=== PATIENT | female | born 1985 | race Caucasian/White ===

== ENCOUNTER 2018-10-01 20:45 | Inpatient (IN) | payer OTHER, MEDICAID ==
[2018-10-01 22:02] LABS: ADD MAN DIFF? NO
[2018-10-01] MEDS: ONDANSETRON 4 MG INJ IV (22:03)
[2018-10-01] MEDS: morphine 4 MG/ML VIAL IV (22:03)
[2018-10-01] MEDS: ACETAMINOPHEN 325 MG TAB PO (22:04)
[2018-10-01] MEDS: SODIUM CHLORIDE 0.9% 1L BAG IV* (22:04)
[2018-10-01 22:10] LABS: BASOPHILS % 0.2 % (0.0-2.0); HEMATOCRIT 40.8 % (37.0-47.0); HEMOGLOBIN 13.7 g/dl (12.0-16.0); LYMPHOCYTES # 0.7 10^3/ul (0.8-2.9); LYMPHOCYTES % 4.5 % (15.0-51.0); MEAN CORPUSCULAR HGB CONC 33.6 g/dl (32.0-37.0); MEAN CORPUSCULAR VOLUME 86.3 fl (82.0-101.0); MEAN PLATELET VOLUME 10.7 fl (7.4-10.4); MONOCYTE # 1.4 10^3/ul (0.3-0.9); MONOCYTES % 8.6 % (0.0-11.0); NEUTROPHIL # 14.1 10^3/ul (1.6-7.5); NEUTROPHILS % 86.3 % (39.0-77.0); PLATELET COUNT 217 10^3/UL (140-415); RED BLOOD COUNT 4.73 10^6/ul (4.20-5.40); RED CELL DISTRIBUTION WIDTH 13.4 % (11.5-14.5)
[2018-10-01 22:10] LABS: WHITE BLOOD COUNT 16.4 10^3/ul (4.8-10.8)
[2018-10-01 22:20] LABS: ADD UMIC YES; UR ASCORBIC ACID NEGATIVE (NEGATIVE); UR BILIRUBIN (Dip) NEGATIVE (NEGATIVE); UR BLOOD (Dip) 1+ mg/dL (NEGATIVE); UR CLARITY CLEAR (CLEAR); UR COLOR YELLOW (YELLOW); UR GLUCOSE (Dip) NEGATIVE (NEGATIVE); UR KETONES (Dip) NEGATIVE (NEGATIVE); UR LEUKOCYTE ESTERASE (Dip) NEGATIVE Leu/ul (NEGATIVE); UR NITRITE (Dip) NEGATIVE (NEGATIVE); UR RBC 0 /HPF (0-5); UR SPECIFIC GRAVITY (Dip) 1.013 (1.003-1.030); UR SQUAMOUS EPITHELIAL CELL FEW /HPF (FEW); UR TOTAL PROTEIN (Dip) NEGATIVE (NEGATIVE); UR UROBILINOGEN (Dip) NEGATIVE (NEGATIVE); UR WBC 1 /HPF (0-5)
[2018-10-01 22:27] LABS: ALANINE AMINOTRANSFERASE 37 IU/L (13-69); ALBUMIN 4.3 g/dl (3.3-4.9); ALBUMIN/GLOBULIN RATIO 1.48; ALKALINE PHOSPHATASE 87 IU/L (42-121); ANION GAP 13 (5-13); ASPARTATE AMINO TRANSFERASE 34 IU/L (15-46); BILIRUBIN,INDIRECT 0.5 mg/dl (0-1.1); BILIRUBIN,TOTAL 0.5 mg/dl (0.2-1.3); BLOOD UREA NITROGEN 8 mg/dl (7-20); CALCIUM 9.2 mg/dl (8.4-10.2); CARBON DIOXIDE 23 mmol/L (21-31); CHLORIDE 103 mmol/L (97-110); Estimated GFR > 60 mL/min (>60); GLUCOSE 119 mg/dl (70-220); POTASSIUM 3.4 mmol/L (3.5-5.1); SODIUM 139 mmol/L (135-144); TOTAL PROTEIN 7.2 g/dl (6.1-8.1)
[2018-10-01 22:30] LABS: PROTIME 13.3 Sec (11.9-14.9)
[2018-10-01 22:37] LABS: TROPONIN-I < 0.012 ng/ml (0.000-0.120)
[2018-10-02] MEDS: CEFEPIME 2GM/50 ML (PMX) 50 ML IVPB (00:10)
[2018-10-02] MEDS: VANCOMYCIN 1 GM (PMX) 250 ML IVPB (00:55)
[2018-10-02] MEDS ORDERED: NACL 0.9% 3 ML SYG IV (01:00)
[2018-10-02] MEDS ORDERED: DOCUSATE SODIUM 100 MG CAP PO (01:00)
[2018-10-02] MEDS ORDERED: ONDANSETRON 4 MG INJ IV (01:00)
[2018-10-02] MEDS ORDERED: ACETAMINOPHEN 325 MG TAB PO (01:00)
[2018-10-02] MEDS ORDERED: BISACODYL (EC) 5 MG TAB PO (01:00)
[2018-10-02] MEDS: SOD CHLORIDE 0.9% 500 ML IV ×2 (01:15→06:55)
[2018-10-02 01:44] LABS: LACTIC ACID 0.9 mmol/L (0.5-2.0)
[2018-10-02 05:54] LABS: ABNORMAL IP MESSAGE 1; HEMATOCRIT 36.9 % (37.0-47.0); HEMOGLOBIN 12.3 g/dl (12.0-16.0); MEAN CORPUSCULAR HEMOGLOBIN 28.9 pg (29.0-33.0); MEAN CORPUSCULAR HGB CONC 33.3 g/dl (32.0-37.0); MEAN CORPUSCULAR VOLUME 86.6 fl (82.0-101.0); MEAN PLATELET VOLUME 10.6 fl (7.4-10.4); PLATELET COUNT 212 10^3/UL (140-415); RED BLOOD COUNT 4.26 10^6/ul (4.20-5.40); RED CELL DISTRIBUTION WIDTH 13.5 % (11.5-14.5)
[2018-10-02 05:54] LABS: WHITE BLOOD COUNT 18.2 10^3/ul (4.8-10.8)
[2018-10-02 06:03] LABS: ADD MAN DIFF? YES; POSITIVE DIFF @See below
[2018-10-02] MEDS ORDERED: VANCOMYCIN IV PER PHARMACY XX (06:30)
[2018-10-02] MEDS: POTASSIUM CHLORIDE (SR) 20 MEQ TAB PO (06:54)
[2018-10-02] MEDS: PIPER-TAZO 3.375 GM IV (PMX) 100 ML IVPB (06:54)
[2018-10-02 07:06] LABS: ALANINE AMINOTRANSFERASE 40 IU/L (13-69); ALBUMIN 3.1 g/dl (3.3-4.9); ALBUMIN/GLOBULIN RATIO 1.34; ALKALINE PHOSPHATASE 60 IU/L (42-121); ANION GAP 9 (5-13); ASPARTATE AMINO TRANSFERASE 28 IU/L (15-46); BILIRUBIN,INDIRECT 0.5 mg/dl (0-1.1); BILIRUBIN,TOTAL 0.5 mg/dl (0.2-1.3); BLOOD UREA NITROGEN 6 mg/dl (7-20); CALCIUM 7.8 mg/dl (8.4-10.2); CARBON DIOXIDE 22 mmol/L (21-31); CHLORIDE 109 mmol/L (97-110); CHOL/HDL RATIO 2.9 RATIO; CHOLESTEROL 82 mg/dl (100-200); CREATININE 0.51 mg/dl (0.44-1.00); Estimated GFR > 60 mL/min (>60); GLUCOSE 117 mg/dl (70-220); HDL CHOLESTEROL 28 mg/dl (34-82); LDL CHOLESTEROL,CALCULATED 49 mg/dl; MAGNESIUM 1.4 mg/dl (1.7-2.5); POTASSIUM 3.4 mmol/L (3.5-5.1); SODIUM 140 mmol/L (135-144); TOTAL PROTEIN 5.4 g/dl (6.1-8.1); TRIGLYCERIDES 25 mg/dl (0-149)
[2018-10-02] MEDS ORDERED: VANCOMYCIN 1.5 GM in SOD CHLORIDE 0.9% 250 ML IVPB (08:00)
[2018-10-02 08:22] LABS: HEMOGLOBIN A1C 5.1 % (0-5.9)
[2018-10-02 08:25] LABS: ANISOCYTOSIS 1+ (0-0); BAND NEUTROPHILS #M 4.3 10^3/ul (0.0-0.6); BAND NEUTROPHILS % (M) 24 % (0-4); GIANT THROMBO% (M) 1 % (0-0); LYMPHOCYTES #M 2.1 10^3/ul (0.8-2.9); LYMPHOCYTES % (M) 12 % (15-51); METAMYELOCYTES #M 0.1 10^3/ul (0.0-0.0); METAMYELOCYTES %M 1 % (0-0); MICROCYTOSIS 1+ (0-0); MONOCYTES % (M) 11 % (0-11); MYELOCYTES #M 0.7 10^3/ul (0.0-0.0); MYELOCYTES % (M) 4 % (0-0); OVALOCYTES 1+ (0-0); PLATELET ESTIMATE NORMAL; POIKILOCYTOSIS 1+ (0-0); REACTIVE LYMPHOCYTES #M 0.9 10^3/ul (0.0-0.0); REACTIVE LYMPHOCYTES% (M) 5 % (0-0); SEG NEUT #M 8.6 10^3/ul (1.6-7.5); SEGMENTED NEUTROPHILS (M) % 43 % (39-77)
[2018-10-02] MEDS: VANCOMYCIN 1 GM 250 ML IVPB (08:33)
[2018-10-02 10:12] LABS: OCCULT BLOOD STOOL POSITIVE (NEGATIVE)
[2018-10-02 11:26] LABS: ABNORMAL IP MESSAGE 1; HEMATOCRIT 38.9 % (37.0-47.0); HEMOGLOBIN 12.8 g/dl (12.0-16.0); MEAN CORPUSCULAR HGB CONC 32.9 g/dl (32.0-37.0); MEAN CORPUSCULAR VOLUME 88.2 fl (82.0-101.0); MEAN PLATELET VOLUME 10.4 fl (7.4-10.4); PLATELET COUNT 231 10^3/UL (140-415); RED BLOOD COUNT 4.41 10^6/ul (4.20-5.40); RED CELL DISTRIBUTION WIDTH 13.3 % (11.5-14.5)
[2018-10-02 11:26] LABS: WHITE BLOOD COUNT 18.9 10^3/ul (4.8-10.8)
[2018-10-02 11:29] LABS: ADD MAN DIFF? YES; POSITIVE DIFF @See below
[2018-10-02] MEDS ORDERED: DIPHENHYDRAMINE 50 MG INJ IV (11:30)
[2018-10-02 11:58] LABS: LACTIC ACID 1.9 mmol/L (0.5-2.0)
[2018-10-02 12:27] LABS: ANISOCYTOSIS 1+ (0-0); BAND NEUTROPHILS #M 4.5 10^3/ul (0.0-0.6); BAND NEUTROPHILS % (M) 24 % (0-4); LYMPHOCYTES #M 3.9 10^3/ul (0.8-2.9); LYMPHOCYTES % (M) 21 % (15-51); METAMYELOCYTES #M 0.1 10^3/ul (0.0-0.0); METAMYELOCYTES %M 1 % (0-0); MICROCYTOSIS 1+ (0-0); MONOCYTE #M 0.3 10^3/ul (0.3-0.9); MONOCYTES % (M) 2 % (0-11); MYELOCYTES #M 0.1 10^3/ul (0.0-0.0); MYELOCYTES % (M) 1 % (0-0); PLATELET ESTIMATE NORMAL; POIKILOCYTOSIS 2+ (0-0); POLYCHROMASIA 1+ (0-0); REACTIVE LYMPHOCYTES #M 0.5 10^3/ul (0.0-0.0); REACTIVE LYMPHOCYTES% (M) 3 % (0-0); SEG NEUT #M 9.9 10^3/ul (1.6-7.5); SEGMENTED NEUTROPHILS (M) % 48 % (39-77); SMUDGE%M 4 % (0-0)
[2018-10-02] MEDS: CIPROFLOXACIN 500 MG TAB PO ×2 (13:09→18:11)
[2018-10-02] MEDS: MAGNESIUM SULFATE 2 GM/50 ML 50 ML IVPB (13:10)
[2018-10-02] MEDS: DIPHENHYDRAMINE 50 MG INJ IV (18:12)
[2018-10-02 18:51] LABS: BASOPHILS % 0.3 % (0.0-2.0); EOSINOPHILS # 0.2 10^3/ul (0.0-0.5); HEMATOCRIT 39.2 % (37.0-47.0); HEMOGLOBIN 12.8 g/dl (12.0-16.0); LYMPHOCYTES % 19.8 % (15.0-51.0); MEAN CORPUSCULAR HEMOGLOBIN 28.5 pg (29.0-33.0); MEAN CORPUSCULAR HGB CONC 32.7 g/dl (32.0-37.0); MEAN CORPUSCULAR VOLUME 87.3 fl (82.0-101.0); MEAN PLATELET VOLUME 10.6 fl (7.4-10.4); MONOCYTE # 1.2 10^3/ul (0.3-0.9); MONOCYTES % 7.9 % (0.0-11.0); NEUTROPHIL # 10.6 10^3/ul (1.6-7.5); NEUTROPHILS % 70.3 % (39.0-77.0); PLATELET COUNT 238 10^3/UL (140-415); RED BLOOD COUNT 4.49 10^6/ul (4.20-5.40); RED CELL DISTRIBUTION WIDTH 13.8 % (11.5-14.5)
[2018-10-02 18:52] LABS: ADD MAN DIFF? NO
[2018-10-02] MEDS: DOCUSATE SODIUM 100 MG CAP PO (20:34)
[2018-10-03 00:59] LABS: ADD MAN DIFF? NO
[2018-10-03 01:04] LABS: BASOPHIL # 0.1 10^3/ul (0.0-0.1); BASOPHILS % 0.4 % (0.0-2.0); EOSINOPHILS # 0.2 10^3/ul (0.0-0.5); EOSINOPHILS % 1.6 % (0.0-7.0); HEMATOCRIT 36.4 % (37.0-47.0); LYMPHOCYTES # 3.2 10^3/ul (0.8-2.9); LYMPHOCYTES % 25.5 % (15.0-51.0); MEAN CORPUSCULAR HEMOGLOBIN 28.9 pg (29.0-33.0); MEAN CORPUSCULAR VOLUME 87.7 fl (82.0-101.0); MEAN PLATELET VOLUME 10.4 fl (7.4-10.4); MONOCYTE # 0.9 10^3/ul (0.3-0.9); MONOCYTES % 7.5 % (0.0-11.0); NEUTROPHIL # 8.1 10^3/ul (1.6-7.5); NEUTROPHILS % 64.4 % (39.0-77.0); PLATELET COUNT 221 10^3/UL (140-415); RED BLOOD COUNT 4.15 10^6/ul (4.20-5.40); RED CELL DISTRIBUTION WIDTH 13.7 % (11.5-14.5)
[2018-10-03 01:04] LABS: WHITE BLOOD COUNT 12.6 10^3/ul (4.8-10.8)
[2018-10-03] MEDS: CIPROFLOXACIN 500 MG TAB PO (06:17)
[2018-10-03] MEDS: DOCUSATE SODIUM 100 MG CAP PO (09:00)
[2018-10-03 09:45] LABS: VANCOMYCIN,TROUGH < 5.0 ug/ml (10.0-20.0)
[2018-10-03] MEDS: INFLUENZA VIRUS VACCINE 0.5 ML (DISPENSING) IM* (09:59)
== END 2018-10-03 15:03 | disposition home or self-care (01) | DRG 872 ==
LOC: TEL 10-02 00:19 → E/R 20:45
PROC: 3E0234Z Introduction of Serum, Toxoid and Vaccine into Muscle, Percutaneous Approach (ICD-10-PCS; principal; 2018-10-03)
DX: A41.1 Sepsis due to other specified staphylococcus (principal); N39.0 Urinary tract infection, site not specified; A08.4 Viral intestinal infection, unspecified; K64.9 Unspecified hemorrhoids; E87.6 Hypokalemia; Z23 Encounter for immunization
CPT/HCPCS: 70450; 71045; 74176; 80053; 80061; 80202; 81001; 82270; 83036; 83605; 83735; 84443; 84484; 84703; 85025; 85610; 85730; 87040; 87045; 87075; 87086; 87177; 87205; 87400; 90686; 93005

== ENCOUNTER 2019-03-20 18:11 | Emergency (ER) | payer OTHER ==
[2019-03-20 20:04] LABS: URINE PH (Dip) POC 6.5 (5.0-8.5)
[2019-03-20 20:04] LABS: URINE BLOOD (Dip) POC Negative (NEGATIVE); URINE GLUCOSE (Dip) POC Negative (NEGATIVE); URINE KETONES (Dip) POC Negative (NEGATIVE); URINE LEUKOCYTE EST (Dip) POC Negative (NEGATIVE); URINE NITRITE (Dip) POC Negative (NEGATIVE); URINE TOTAL PROTEIN POC Negative (NEGATIVE)
[2019-03-20] MEDS: ONDANSETRON (ODT) 4 MG TAB ODT (20:06)
== END 2019-03-20 20:36 | disposition home or self-care (01) ==
LOC: FTE 20:36
DX: K52.9 Noninfective gastroenteritis and colitis, unspecified (principal)
CPT/HCPCS: 81003; 81025; 99283